=== PATIENT | female | born 1945 | race Caucasian/White ===

== ENCOUNTER 2019-10-30 00:02 | Outpatient (CLI) | payer MEDICARE, SELFPAY ==
[2019-10-30 17:43] LABS: SARS-CoV-2 RNA PCR Negative
== END 2019-10-30 00:03 | disposition home or self-care (01) ==
LOC: ANHCOVIDDT 00:02
PROVIDERS: Visit Provider Urology
DX: Z01.818 Encounter for other preprocedural examination (principal); Z11.59 Encounter for screening for other viral diseases
CPT/HCPCS: 87635; C9803; U0003

== ENCOUNTER 2019-11-01 01:38 | Day surgery (SDC) | payer MEDICARE, SELFPAY ==
[2019-10-23 08:05] VITALS: BMI 39.4
--- NOTE | 2019-11-01 07:19 | WPDHPUPDATE1 ---
History and Physical Update Update Date/Time: 11/01/19 07:19 History and Physical has been reviewed, including an updated exam of the patient. There are NO changes in the patient's condition. Risks, benefits, and alternatives have been discussed and questions answered. Patient agrees to proceed with procedure.
[2019-11-01 08:33] VITALS: BP 164/73; PULSE 77; RESP 20; TEMP 36.4; O2SAT 100
[2019-11-01] MEDS: LACTATED RINGERS 1,000 ML 30 ML IV CONT (08:55)
--- NOTE | 2019-11-01 08:55 | P.PNAN_ITS ---
Anes - Initial Pre Proc Eval Procedure: Operation Date: 11/01/19 10:30 Proposed Procedures p Cystoscopy With Bulking Agent - Sabino Vigil MD Date/Time: 11/01/19 08:55 Surgeon: Sabino Vigil MD Pre Op Diagnosis: ISD Patient Data Age: 74 Gender: F Height: 5 ft 4 in Weight: 102.1 kg Last Vital Signs Temp 97.6 F 11/01/19 08:33 Pulse 77 11/01/19 08:33 Resp 20 11/01/19 08:33 BP 164/73 H 11/01/19 08:33 Pulse Ox 100 11/01/19 08:33 Allergies Allergy/AdvReac Type Severity Reaction Status Date / Time No Known Allergies Allergy Verified 11/01/19 08:41 Home Medications Medication Instructions Recorded Confirmed Type calcium carbonate-vitamin D3 2 tablet PO DAILY 10/23/19 11/01/19 History [Calcium 600 + D(3)] glucos sul [id number]-C-Mn 2 cap PO DAILY 10/23/19 11/01/19 History [Glucosamine Chondroitin] irbesartan-hydrochlorothiazide 1 tablet PO DAILY 10/23/19 11/01/19 History loratadine [Claritin] 10 mg PO DAILY 10/23/19 11/01/19 History multivitamin 1 tablet PO DAILY 10/23/19 11/01/19 History omega-3 fatty acids [Fish Oil 2,000 mg PO BID 10/23/19 11/01/19 History Concentrate] sertraline 100 mg PO DAILY 10/23/19 11/01/19 History simvastatin 40 mg PO HS 10/23/19 11/01/19 History trazodone 50 mg PO HS 10/23/19 11/01/19 History Patient hx anesthesia problems: none Family hx anesthesia problems: none [facility] Past Medical History Medical History (Updated 11/01/19 @ 08:55 by Glenn Cullen MD) GERD (gastroesophageal reflux disease) Hyperlipidemia Hypertension ALVAREZ (obstructive sleep apnea) Anes - Eval Final PreProcedure Day of Procedure 11/01/19 08:55 Patient weight: obese Heart: regular rate and rhythm Lungs: clear to auscultation Airway: Mallampati scale class III Neurological: alert and oriented Last oral intake: >/= 8 hours ASA classification: III Emergent: no Anesthetic plan: proceed Anesthesia type and monitoring: general GIVS and standard monitoring Informed Consent: The patient's anesthetic plan and its attendant risks and benefits were discussed with the patient/family/POA. Questions were solicited and answers provided to the satisfaction of the patient/family/POA.
[2019-11-01] MEDS: ceFAZolin 2 GM/D5W 50 ML 2 GM/50 ML BAG IVPB (09:47)
[2019-11-01] MEDS: LIDOCAINE HCL 2% GEL UROJET 10 ML PKG MUCOUS MEM (10:01)
[2019-11-01 10:12] VITALS: BP 101/48; PULSE 64; RESP 16; TEMP 36.7; O2SAT 94
--- NOTE | 2019-11-01 10:21 | P.OP_ITS ---
Procedure Note - Detailed Date of procedure: 11/01/19 Pre-op diagnosis: ISD Intrinsic sphincter deficiency Post-op diagnosis: same Procedure performed: Cystoscopy with implantation of suburethral implant material [id number] Description of procedure: She was correctly identified and informed consent was obtained. She was brought to the operating room. She was given mac anesthesia. She was placed in the dorsal lithotomy position. She was prepped and draped in a sterile fashion. A time-out performed. Cystoscopy revealed no tumors in the bladder and an open urethra consistent with intrinsic sphincter deficiency. I injected the bulking agent into the urethra at the 10:00 a.m. to o'clock and 6 o'clock position. There is excellent bulking effect. Her bladder was drained with a 14 [place] red rubber catheter. She was awakened and transferred to the PACU in stable condition. Implants: Macroplastique Anesthesia: MAC Surgeon: Sabino Vigil MD Drains: No Packing: No Pathology: none sent Complications: No immediate complications Condition: stable Disposition: PACU
[2019-11-01 10:42] VITALS: BP 141/71; PULSE 64; O2SAT 100
[2019-11-01 11:12] VITALS: BP 132/66; PULSE 70; O2SAT 100
--- NOTE | 2019-11-01 11:28 | SUR.PHASEII ---
1100- pt voided twice on bed [place] in phase 2 recovery
== END 2019-11-01 11:18 | disposition home or self-care (01) ==
PROVIDERS: PCP Family Medicine; Visit Provider Urology
PROC: 3E0K8GC Introduction of Other Therapeutic Substance into Genitourinary Tract, Via Natural or Artificial Opening Endoscopic (ICD-10-PCS; CPT 51715; principal; 2019-11-01 10:30)
DX: N36.42 Intrinsic sphincter deficiency (ISD) (principal); I10 Essential (primary) hypertension; E78.5 Hyperlipidemia, unspecified; G47.33 Obstructive sleep apnea (adult) (pediatric); K21.9 Gastro-esophageal reflux disease without esophagitis; E66.9 Obesity, unspecified; Z68.38 Body mass index [BMI] 38.0-38.9, adult
CPT/HCPCS: 51715; 87635; A9270; C9803; J0690; J2704; J7120; L8606; U0003